=== PATIENT | female | born 1985 | race Two or more races ===

== ENCOUNTER 2017-11-01 04:37 | Emergency (ER) | payer BC ==
[~2017-11-01] VITALS: Ht 160 cm; Wt 61.2 kg
[2017-11-01 04:43] VITALS: BP 135/68
== END 2017-11-01 05:57 | disposition home or self-care (01) ==
LOC: ER 04:39
DX: S09.8XXA Other specified injuries of head, initial encounter (principal); W22.8XXA Striking against or struck by other objects, initial encounter; Y93.89 Activity, other specified; Y92.89 Other specified places as the place of occurrence of the external cause; Y99.8 Other external cause status
CPT/HCPCS: 99284; A4606; Z7610